=== PATIENT | female | born 1985 | race Caucasian/White ===

== ENCOUNTER 2020-01-28 21:12 | Emergency (ER) | payer OTHER ==
[~2020-01-28] VITALS: Ht 167.6 cm; Wt 81.6 kg
[2020-01-28 21:21] VITALS: BP 115/79
--- NOTE | 2020-01-28 21:24 | NUR ---
PT INSTRUCTED TO WAIT IN LOBBY
--- NOTE | 2020-01-28 22:00 | NUR ---
DRUD LEANNA EVALUATING PT AT BEDSIDE. NO NURSING INTERVENTIONS ORDERED.
[2020-01-28 22:51] VITALS: BP 115/79
--- NOTE | 2020-01-28 22:51 | NUR ---
GERONIMO TAPED PT'S FOURTH AND FIFTH DIDGET TOGETHER ON PT'S LEFT FOOT THEN PLACED PT IN ORTHO SHOE. PMSC'S WERE CHECKED BEFORE AND AFTER WITHOUT INCIDENT.
== END 2020-01-28 22:51 | disposition home or self-care (01) ==
LOC: MED 21:12
DX: S92.912B Unspecified fracture of left toe(s), initial encounter for open fracture (principal); X58.XXXA Exposure to other specified factors, initial encounter; Y93.89 Activity, other specified; Y92.89 Other specified places as the place of occurrence of the external cause; Y99.8 Other external cause status
CPT/HCPCS: 73660; 99283; Q0092

== ENCOUNTER 2021-03-22 13:06 | Emergency (ER) | payer OTHER ==
[~2021-03-22] VITALS: Ht 167.6 cm; Wt 81.6 kg
[2021-03-22 13:20] VITALS: BP 121/81
--- NOTE | 2021-03-22 13:35 | NUR ---
PT TAKEN TO BED 5.
[2021-03-22 13:45] LABS: APPEARANCE,URINE CLEAR (CLEAR); BILIRUBIN,URINE NEGATIVE (NEGATIVE); BLOOD, URINE 3+ (NEGATIVE); COLOR,URINE YELLOW (YELLOW); LEUKOCYTE ESTERASE ,URINE TRACE (NEGATIVE); NITRITE, URINE NEGATIVE (NEGATIVE); PH,URINE 5.5 (5.0-9.0); UGLUCOSE 3+ (NEGATIVE)
--- NOTE | 2021-03-22 13:52 | NUR ---
MISTY Newton evaluating patient at bedside.
[2021-03-22 13:55] LABS: RBC,URINE 80-100 /HPF (0-5)
[2021-03-22] MEDS ORDERED: CEPH-588 PO (14:00)
[2021-03-22] MEDS ORDERED: ACET-10509 PO (14:00)
[2021-03-22] MEDS ORDERED: FLUCONAZOLE 100 MG TAB PO ONE (14:00)
[2021-03-22] MEDS ORDERED: cephALEXin 500 MG CAP PO ONE (14:00)
[2021-03-22] MEDS ORDERED: KETOROLAC 30 MG/ML VIAL IM ONE (14:00)
--- NOTE | 2021-03-22 14:00 | NUR ---
35 YEAR OLD FEMALE COMPLAINS OF LOWER BACK PAIN X 2 DAYS. PT STATES SHE ALSO HAS BURNING ON URINATION, DENIES ODOR. PT DENIES NAUSEA, VOMITTING, DIARRHEA. PT AOX4, BREATHING EVEN AND UNLABORED, SKIN WARM AND DRY. BED IN LOWEST POSITION, LOCKED, BED RAIL UPX1. PMH - DM1 ALLERGIES - NKA
[2021-03-22] MEDS ORDERED: MICO2CRE70 VG (14:22)
--- NOTE | 2021-03-22 15:00 | NUR ---
Patient discharged with v/s stable. Written and verbal after care instructions about UTI given and explained. Patient alert, oriented and verbalized understanding of instructions. Ambulatory with steady gait. All questions addressed prior to discharge. ID band removed. Patient advised to follow up with PMD. Rx of tylenol and keflex given. Patient educated on indication of medication including possible reaction and side effects. Opportunity to ask questions provided and answered.
[2021-03-22 15:02] VITALS: BP 121/81
== END 2021-03-22 15:00 | disposition home or self-care (01) ==
LOC: MED 13:06
DX: N39.0 Urinary tract infection, site not specified (principal); B37.3 Candidiasis of vulva and vagina; E11.9 Type 2 diabetes mellitus without complications; Z79.899 Other long term (current) drug therapy
CPT/HCPCS: 81001; 81025; 87086; 96372; 99283; J1885

== ENCOUNTER 2022-12-12 14:03 | Emergency (ER) | payer OTHER ==
[~2022-12-12] VITALS: Ht 167.6 cm; Wt 76.7 kg
[~2022-12-12 14:03] MED LIST: ACET-10509 PO; CEPH-588 PO; MICO2CRE70 VG
[2022-12-12 14:06] VITALS: BP 130/84
[2022-12-12 14:32] LABS: BASOPHILS # (AUTO) 0.1 K/uL (0.00-0.22); BASOPHILS % (AUTO) 0.7 % (0.0-2.0); EOSINOPHILS # (AUTO) 0.1 K/uL (0-0.4); EOSINOPHILS % (AUTO) 1.6 % (0.0-4.0); HEMATOCRIT 32.8 % (36-48); HEMOGLOBIN 10.6 g/dL (12.0-16.0); LYMPHOCYTES # (AUTO) 1.2 K/uL (2.5-16.5); LYMPHOCYTES % (AUTO) 13.7 % (20.5-51.1); MEAN CORPUSCULAR HEMOGLOBIN 26 pg (27-31); MEAN CORPUSCULAR HGB CONC 32 g/dL (33-37); MEAN CORPUSCULAR VOLUME 81.8 fL (80-94); MONOCYTES # (AUTO) 0.5 K/uL (0.8-1.0); MONOCYTES % (AUTO) 5.5 % (1.7-9.3); NEUTROPHILS # (AUTO) 6.9 K/uL (1.8-7.7); NEUTROPHILS % (AUTO) 78.5 % (42.2-75.2); PLATELET COUNT (AUTO) 548 K/uL (140-450); RED BLOOD CELL COUNT(AUTO) 4.01 MIL/uL (4.20-5.40); WHITE BLOOD COUNT (AUTO) 8.8 K/uL (4.8-10.8)
[2022-12-12 14:39] LABS: RED CELL DISTRIBUTION WIDTH 23.5 % (11.6-13.7)
[2022-12-12 14:50] LABS: ALBUMIN 3.7 g/dL (3.4-5.0); ANION GAP 12.7 (8-16); CARBON DIOXIDE 29.1 mmol/L (21-32); CREATININE 0.7 mg/dL (0.6-1.3); POTASSIUM 4.8 mmol/L (3.5-5.1); TOTAL BILIRUBIN 0.2 mg/dL (0.0-1.0)
[2022-12-12] MEDS ORDERED: ONDANSETRON 4 MG/2 ML VIAL IVP ONE (14:55)
[2022-12-12] MEDS ORDERED: NACL 0.9% 1,000 ML IV ONE ×3 (14:55→15:15)
--- NOTE | 2022-12-12 15:04 | NUR ---
PT AMBULATED TO ER BED 7
[2022-12-12 15:13] LABS: APPEARANCE,URINE CLEAR (CLEAR); BILIRUBIN,URINE NEGATIVE (NEGATIVE); BLOOD, URINE 3+ (NEGATIVE); COLOR,URINE YELLOW (YELLOW); LEUKOCYTE ESTERASE ,URINE NEGATIVE (NEGATIVE); NITRITE, URINE NEGATIVE (NEGATIVE); PH,URINE 6.5 (5.0-9.0); UGLUCOSE 3+ (NEGATIVE)
[2022-12-12] MEDS ORDERED: metFORMIN 500 MG TAB PO SCH (15:15)
[2022-12-12] MEDS ORDERED: INSULIN REGULAR, HUMAN 100 UNIT/ML VIAL SUBQ ONE (15:15)
[2022-12-12 15:31] LABS: TRICHOMONAS,URINE None Seen /HPF (None Seen); WBC,URINE 0-5 /HPF (0-5); YEAST,URINE None Seen /HPF (None Seen)
--- NOTE | 2022-12-12 15:45 | NUR ---
37YO FEMALE PT C/O SHARP ABD PAIN X3-4DAYS. REPORTS SUDDEN ONSET W/ PAIN AT MOST ON PRESSURE. ABD SOFT, FLAT AND TENDER TO TOUCH. STATES MILD RELIEF AFTER TYLENOL AND MOTRIN. DENIES N/V/D, CHEST PAIN, SOB, FEVER OR CHILLS. PT AAOX4, HOB POSITIONED PER COMFORT. HX:DIABETES NKA
--- NOTE | 2022-12-12 15:46 | NUR ---
PT TAKEN TO CT VIA WHEELCHAIR
--- NOTE | 2022-12-12 15:46 | NUR ---
PT TAKEN TO CT VIA WHEELCHAIR
--- NOTE | 2022-12-12 15:56 | NUR ---
Juan rosario in [facility] - 12/12/22 at 1559 by PHSEP PT TAKEN TO CT VIA WHEELCHAIR
--- NOTE | 2022-12-12 15:56 | NUR ---
Juan rosario in [facility] - 12/12/22 at 1558 by PHSEP PT BROUGHT BACK VIA CHIARA
[2022-12-12] MEDS ORDERED: ACET-10509 PO (17:09)
[2022-12-12] MEDS ORDERED: EMLAC TP (17:09)
[2022-12-12] MEDS ORDERED: NAPR-1704 PO (17:09)
[2022-12-12] MEDS ORDERED: LID5T TP (17:09)
[2022-12-12 17:15] VITALS: BP 126/74
--- NOTE | 2022-12-12 17:20 | NUR ---
Patient discharged with v/s stable. Written and verbal after care instructions FOR CHOLETHIASIS AND GALLBLADDER EATING PLAN given and explained. Patient alert, oriented and verbalized understanding of instructions. Ambulatory with steady gait. All questions addressed prior to discharge. ID band removed. Patient advised to follow up with PMD. Rx of TYLENOL XTRA STRENGTH, LIDOCAINE HYD AND NAPROXEN given. Opportunity to ask questions provided and answered.
== END 2022-12-12 17:20 | disposition home or self-care (01) ==
LOC: MED 14:03
DX: K80.70 Calculus of gallbladder and bile duct without cholecystitis without obstruction (principal); E11.9 Type 2 diabetes mellitus without complications; D64.9 Anemia, unspecified; D25.9 Leiomyoma of uterus, unspecified; Z98.890 Other specified postprocedural states; Z79.899 Other long term (current) drug therapy; Z79.1 Long term (current) use of non-steroidal anti-inflammatories (NSAID); Z79.2 Long term (current) use of antibiotics
CPT/HCPCS: 36415; 74176; 80053; 81001; 81025; 83690; 85025; 96361; 96372; 96374; 99285; J1815; J2405; J7030

== ENCOUNTER 2023-01-25 03:40 | Emergency (ER) | payer OTHER ==
[~2023-01-25] VITALS: Ht 167.6 cm; Wt 77.1 kg
[~2023-01-25 03:40] MED LIST changes: +EMLAC TP; +LID5T TP; +NAPR-1704 PO
[2023-01-25 03:59] VITALS: BP 112/77
--- NOTE | 2023-01-25 04:00 | NUR ---
to bed 12
--- NOTE | 2023-01-25 04:10 | NUR ---
Received patient to ER w/ c/o lower abd pain associated w/ vaginal bleeding since 1999. Patient states "bleeding alot and noticed clots." H/O uterine fibroids. patient also h/o diabetes and noted to have bs of 487 (MD notified). Introduced self to patient, positioned for comfort. Bed to low position sr up, continue to monitor.
[2023-01-25] MEDS ORDERED: NACL 0.9% 1,000 ML IV ONE ×2 (04:15→04:30)
[2023-01-25] MEDS ORDERED: KETOROLAC 30 MG/ML VIAL IVP ONE (04:15)
[2023-01-25] MEDS ORDERED: ONDANSETRON 4 MG/2 ML VIAL IVP ONE (04:15)
--- NOTE | 2023-01-25 04:15 | NUR ---
Patient started on 1st liter of NS 0.9% w/o bolus. Iv site to RAC, patent and intact. continue to monitor patient. positioned for comfort. bed to low position sr up.
--- NOTE | 2023-01-25 04:16 | NUR ---
urine taken to lab
[2023-01-25 04:27] LABS: APPEARANCE,URINE CLEAR (CLEAR); BILIRUBIN,URINE NEGATIVE (NEGATIVE); BLOOD, URINE 3+ (NEGATIVE); COLOR,URINE YELLOW (YELLOW); LEUKOCYTE ESTERASE ,URINE NEGATIVE (NEGATIVE); NITRITE, URINE NEGATIVE (NEGATIVE); PH,URINE 6.5 (5.0-9.0); UGLUCOSE 3+ (NEGATIVE)
[2023-01-25 04:29] LABS: RBC,URINE TOO NUMEROUS TO COUN /HPF (0-5)
[2023-01-25 04:30] LABS: WBC,URINE 0-5 /HPF (0-5)
--- NOTE | 2023-01-25 04:35 | NUR ---
Patient medicated w/ 2nd liter of 0.9%NS bolus, also given toradol and zofran. Iv site patent and intact. Will observe for any adverse reaction. Bed to low position sr up, continue to monitor.
[2023-01-25 04:54] LABS: BASOPHILS # (AUTO) 0.1 K/uL (0.00-0.22); BASOPHILS % (AUTO) 1.1 % (0.0-2.0); EOSINOPHILS # (AUTO) 0.2 K/uL (0-0.4); EOSINOPHILS % (AUTO) 2.5 % (0.0-4.0); HEMATOCRIT 32.7 % (36-48); HEMOGLOBIN 10.5 g/dL (12.0-16.0); LYMPHOCYTES % (AUTO) 14.5 % (20.5-51.1); MEAN CORPUSCULAR HEMOGLOBIN 26 pg (27-31); MEAN CORPUSCULAR HGB CONC 32 g/dL (33-37); MEAN CORPUSCULAR VOLUME 79.5 fL (80-94); MONOCYTES # (AUTO) 0.4 K/uL (0.8-1.0); MONOCYTES % (AUTO) 6.2 % (1.7-9.3); NEUTROPHILS # (AUTO) 5.4 K/uL (1.8-7.7); NEUTROPHILS % (AUTO) 75.7 % (42.2-75.2); PLATELET COUNT (AUTO) 425 K/uL (140-450); RED BLOOD CELL COUNT(AUTO) 4.11 MIL/uL (4.20-5.40); RED CELL DISTRIBUTION WIDTH 19.6 % (11.6-13.7); WHITE BLOOD COUNT (AUTO) 7.1 K/uL (4.8-10.8)
[2023-01-25] MEDS ORDERED: ONDA-188 PO (05:30)
[2023-01-25] MEDS ORDERED: TRAM50TA3 PO (05:30)
[2023-01-25 05:36] LABS: TOTAL BILIRUBIN 0.3 mg/dL (0.0-1.0)
[2023-01-25 05:37] LABS: ALBUMIN 3.3 g/dL (3.4-5.0)
--- NOTE | 2023-01-25 05:39 | NUR ---
patient resting comfortably at this time, iv fluids infused, iv site patent and intact. Positioned patient for comfort. bed to low position sr up, continue to monitor.
--- NOTE | 2023-01-25 05:57 | NUR ---
after x2 liters of ns 0.9%, repeat acck noted at 383. u/s tech at bedside.
[2023-01-25 06:00] LABS: ANION GAP 52.1 (8-16); CARBON DIOXIDE 22.4 mmol/L (21-32); POTASSIUM 3.5 mmol/L (3.5-5.1)
[2023-01-25 06:01] LABS: CREATININE 0.6 mg/dL (0.6-1.3)
[2023-01-25] MEDS ORDERED: INSULIN REGULAR, HUMAN 100 UNIT/ML VIAL IV ONE (06:05)
[2023-01-25] MEDS ORDERED: KETOROLAC 15 MG/ML VIAL IVP ONE (07:10)
--- NOTE | 2023-01-25 07:19 | NUR ---
patient medicated as ordered w/ toradol 15mg ivp to RAC. iv site patent and intact. patient request to leave after being medicated. patient given aci and rx verbalized understanding of f/u care and taking of rx medications.
--- NOTE | 2023-01-25 07:20 | NUR ---
Patient discharged with v/s stable. Written and verbal after care instructions given and explained. Patient alert, oriented and verbalized understanding of instructions. Ambulatory with steady gait. All questions addressed prior to discharge. ID band removed. Patient advised to follow up with PMD. Rx of tramadol and zofran given. Patient educated on indication of medication including possible reaction and side effects. Opportunity to ask questions provided and answered.
[2023-01-25 07:21] VITALS: BP 122/77
== END 2023-01-25 07:21 | disposition home or self-care (01) ==
LOC: MED 03:40
DX: N94.6 Dysmenorrhea, unspecified (principal); N92.1 Excessive and frequent menstruation with irregular cycle; E11.9 Type 2 diabetes mellitus without complications; Z79.4 Long term (current) use of insulin; Z79.899 Other long term (current) drug therapy
CPT/HCPCS: 36415; 76856; 80053; 81001; 81025; 83690; 85025; 96361; 96374; 96375; 96376; 99285; J1815; J1885; J2405

== ENCOUNTER 2023-05-18 17:52 | Emergency (ER) | payer OTHER ==
[~2023-05-18] VITALS: Ht 167.6 cm; Wt 73.9 kg
[~2023-05-18 17:52] MED LIST changes: +ONDA-188 PO; +TRAM50TA3 PO
[2023-05-18 18:32] VITALS: BP 140/85; PULSE 93; RESP 20; TEMP 98.1; O2SAT 100
[2023-05-18 19:45] LABS: BASOPHILS # (AUTO) 0.1 K/uL (0.00-0.22); BASOPHILS % (AUTO) 1.5 % (0.0-2.0); EOSINOPHILS # (AUTO) 0.2 K/uL (0-0.4); EOSINOPHILS % (AUTO) 3.4 % (0.0-4.0); HEMATOCRIT 28.3 % (36-48); HEMOGLOBIN 8.7 g/dL (12.0-16.0); LYMPHOCYTES # (AUTO) 1.9 K/uL (2.5-16.5); LYMPHOCYTES % (AUTO) 30.3 % (20.5-51.1); MEAN CORPUSCULAR HEMOGLOBIN 21 pg (27-31); MEAN CORPUSCULAR HGB CONC 31 g/dL (33-37); MEAN CORPUSCULAR VOLUME 70.1 fL (80-94); MONOCYTES # (AUTO) 0.5 K/uL (0.8-1.0); MONOCYTES % (AUTO) 8.5 % (1.7-9.3); NEUTROPHILS # (AUTO) 3.5 K/uL (1.8-7.7); NEUTROPHILS % (AUTO) 56.3 % (42.2-75.2); PLATELET COUNT (AUTO) 526 K/uL (140-450); RED BLOOD CELL COUNT(AUTO) 4.04 MIL/uL (4.20-5.40); RED CELL DISTRIBUTION WIDTH 20.2 % (11.6-13.7); WHITE BLOOD COUNT (AUTO) 6.3 K/uL (4.8-10.8)
[2023-05-18 19:53] LABS: APPEARANCE,URINE CLOUDY (CLEAR); BILIRUBIN,URINE NEGATIVE (NEGATIVE); BLOOD, URINE NEGATIVE (NEGATIVE); COLOR,URINE YELLOW (YELLOW); LEUKOCYTE ESTERASE ,URINE NEGATIVE (NEGATIVE); NITRITE, URINE NEGATIVE (NEGATIVE); PROTEIN,URINE NEGATIVE (NEGATIVE); UGLUCOSE 3+ (NEGATIVE); UROBILINOGEN,URINE 0.2 EU/dL (0.2 - 1)
[2023-05-18 20:15] LABS: ALBUMIN 3.4 g/dL (3.4-5.0); ANION GAP 14.7 (8-16); CALCIUM 8.9 mg/dL (8.5-10.1); CARBON DIOXIDE 24.4 mmol/L (21-32); CREATININE 0.6 mg/dL (0.6-1.3); FREE T4 (FREE THYROXINE) 1.15 ng/dL (0.76-1.46); POTASSIUM 4.1 mmol/L (3.5-5.1); THYROID STIMULATING HORMONE 0.84 uIU/mL (0.34-3.74); TOTAL BILIRUBIN 0.4 mg/dL (0.0-1.0); TOTAL PROTEIN, SERUM 7.5 g/dL (6.4-8.2)
[2023-05-18] MEDS ORDERED: KETOROLAC 15 MG/ML VIAL IM ONE (20:35)
[2023-05-18] MEDS ORDERED: GYNLOTC VG (20:48)
[2023-05-18] MEDS ORDERED: GABA300C PO (20:48)
[2023-05-18 21:30] VITALS: BP 138/84; PULSE 93; RESP 20; TEMP 98.2; O2SAT 100
== END 2023-05-18 21:30 | disposition home or self-care (01) ==
LOC: MED 17:52
DX: E11.40 Type 2 diabetes mellitus with diabetic neuropathy, unspecified (principal); E11.65 Type 2 diabetes mellitus with hyperglycemia; D50.9 Iron deficiency anemia, unspecified; Z79.4 Long term (current) use of insulin; Z79.899 Other long term (current) drug therapy
CPT/HCPCS: 36415; 80053; 81003; 81025; 84439; 84443; 85025; 96372; 99283; J1885